=== PATIENT | female | born 1960 | race Caucasian/White ===

== ENCOUNTER 2024-12-08 16:49 | Outpatient (REF) | payer OTHER, SELFPAY ==
[2024-12-08 18:04] LABS: Anion Gap 10.1; BUN Creatinine Ratio 29.1; Calcium 8.7 mg/dL (8.5-10.1); Carbon Dioxide 30.9 mmol/L (21.0-32.0); Chloride 106 mmol/L (98-107); Estimated GFR (African America >60 (>=60 mL/min/1.73m^2); Estimated GFR (Non-African Ame >60 (>=60 mL/min/1.73m^2); Glucose 108 mg/dL (74-106); Sodium 144 mmol/L (136-145)
== END 2024-12-08 16:50 | disposition home or self-care (01) ==
LOC: LAB 16:49
PROVIDERS: PCP Internal Medicine; Visit Provider Internal Medicine
DX: R63.0 Anorexia (principal)
CPT/HCPCS: 36415; 80048; 83735